=== PATIENT | male | born 1940 | race Hispanic/Latino ===

== ENCOUNTER 2020-04-03 17:34 | Inpatient (IN) | payer MEDICARE ==
--- NOTE | 2020-04-03 23:35 | PDOC.HHP ---
Hospitalist HPI - History of Present Illness Cough History of Present Illness: This is a 79-year-old male patient With a history of diabetes mellitus who was transferred from [facility] on account of respiratory failure requiring 2 L of oxygen and suspicious of Covid. On arrival patient was looking generally comfortable. 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 Patient is Iranian-speakingtelemetry diplomatic interpreter was used for this H&P At the time of my evaluation his cough seems to have started improving however. At [place], he was requiring 2 L to maintain his saturations at about 92 and above. His D-dimer was significantly elevated however his CTA was negative for PE. His chest imaging was however suggestive of Covid infection. Covid test was not actually done given rapid test cannot be done at the outside facility. At the time of his arrival patient looks pretty stable. He said the cough is actually stopped and he was feeling quite healthy. Patient knows of cough and has stopped he denied any sore throat chest pain wheezing palpitations or shortness of breath. Also denies any fevers dysuria frequency or diarrhea. His labs done in [place] shows leukocytosis of 11.0, He had hyponatremia of 132, CK 2 7, CRP 18.7 lactate 1.7. Medicine he was given 1 L normal saline azithromycin, ceftriaxone, Lovenox and dexamethasone prior to transfer here. Hospitalist ROS - Review of Systems Constitutional: denies: fever, chills, sweats, weakness, malaise Eyes: denies: pain, vision change, conjunctivae inflammation ENT: denies: ear pain, ear discharge, nose pain Respiratory: reports: cough, shortness of breath. denies: pleuritic pain, sputum Gastrointestinal: denies: nausea, vomiting, abdominal pain Genitourinary: denies: dysuria, frequency, incontinence Neurological: denies: weakness, numbness, incoordination, change in speech Hospitalist History - Past Medical History Endocrine: reports: Diabetes - Past Surgical History Past Surgical History: reports: no pertinent history - Family History Family History: reports: no pertinent history - Social History Smoking Status: Current every day smoker Living Situation: Alone Activity level: uses cane/walker - Exam General Appearance: awake alert Eye: PERRL, anicteric sclera ENT: normocephalic atraumatic Neck: supple, symmetric, no JVD, no thyromegaly Heart: RRR, no murmur, no gallops, no rubs Respiratory: CTAB, no wheezes, no rales, no ronchi, normal chest expansion, normal percussion, rhonchi Gastrointestinal: soft, non-tender, non-distended, normal bowel sounds Extremities: no cyanosis, no edema Skin: normal turgor Neurological: cranial nerve grossly intact, normal sensation to touch, no weakness, no focal deficits Musculoskeletal: normal tone, normal strength, no muscle wasting Psychiatric: normal affect, normal behavior, A&O x 3 Hospitalist Results - Labs Result Diagrams: 04/05/20 06:43 04/05/20 06:43 Hospitalist H&P A/P - Plan Plan: This is a 79-year-old male patient that history of diabetes who presents as a transfer from [place] due to concerns for possible Covid pneumonia. Pneumonia Bilateral infiltrates concerning for Covid Covid test pending Received azithromycin and ceftriaxonewe will continue Await Covid test. Diabetes mellitus Currently stable Monitor glucose. CODE STATUSfull code dispositionlikely home tomorrow if still stable DVT prophylaxisLovenox
[2020-04-04 00:37] VITALS: BMI 21.3
[2020-04-04] MEDS ORDERED: HumaLOG 300 UNITS/3 ML VIAL SC PRN (04:45)
[2020-04-04] MEDS ORDERED: Dextrose 50% Abboject 50 ML SYRINGE SLOW IVP PRN (04:45)
[2020-04-04] MEDS ORDERED: Dextrose 5% in Water 1,000 ML IV PRN (04:45)
[2020-04-04 05:17] LABS: SARS-CoV-2 MS2 Positive; SARS-CoV-2 N Gene Positive; SARS-CoV-2 S Gene Positive; SARS-CoV-2 by NAA DETECTED (NotDetected); SARS-CoV-2 orf1ab Positive
[2020-04-04 06:19] LABS: #Lymphocytes 0.5 thou/uL (1.20-3.40); #Monocytes 0.2 thou/uL (0.11-0.59); #Neutrophils 7.9 thou/uL (1.40-6.50); %Eosinophils 0.1 % (0.0-10.0); %Lymphocytes 5.3 % (21.0-51.0); %Monocytes 2.3 % (0.0-10.0); %Neutrophils 92.3 % (42.0-75.0); Mean Corpuscular HGB CONC 33.7 g/dL (32.0-36.0); Mean Corpuscular Hemoglobin 28.5 pg (27.0-31.0); Mean Corpuscular Volume 84.6 fL (78.0-98.0); Mean Platelet Volume 8.4 fL (7.4-10.4); Platelet Count 166 thou/uL (130-400); RBC Distribution Width 11.8 % (11.5-14.5); Red Blood Cell (RBC) Count 4.57 mill/uL (4.70-6.10); White Blood Cell (WBC) Count 8.6 thou/uL (4.8-10.8)
[2020-04-04 06:42] LABS: Anion Gap 12 mmol/L (10-20); BUN (Urea Nitrogen) 24 mg/dL (8.4-25.7); Calc. Creatinine Clearance 63 mL/min (70-130); Calcium 8.3 mg/dL (7.8-10.44); Carbon Dioxide 26 mmol/L (23-31); Chloride 102 mmol/L (98-107); Glucose 158 mg/dL (83-110); Potassium 3.5 mmol/L (3.5-5.1); Sodium 136 mmol/L (136-145)
[2020-04-04] MEDS: Acetaminophen 325 MG TAB PO PRN (08:03)
[2020-04-04] MEDS ORDERED: Enoxaparin Sodium 40 MG/0.4 ML SYRINGE SC SCH (09:00)
[2020-04-04] MEDS ORDERED: Dexamethasone 4 mg/ml Vial SLOW IVP SCH (10:00)
[2020-04-04] MEDS ORDERED: Polyethylene Glycol 3350 17 GM Packet PO PRN (15:55)
[2020-04-04] MEDS ORDERED: REMDESIVIR (EUA) 200 MG in Sodium Chloride 0.9% 250 ML 210 ML IV SCH (18:15)
[2020-04-04] MEDS: Senokot S 8.6-50 MG TAB PO SCH (20:01)
[2020-04-04] MEDS: Famotidine 20 MG TAB PO SCH (20:02)
[2020-04-04] MEDS: Enoxaparin Sodium 40 MG/0.4 ML SYRINGE SC SCH (20:02)
[2020-04-05 07:08] LABS: #Lymphocytes 0.4 thou/uL (1.20-3.40); #Monocytes 0.5 thou/uL (0.11-0.59); #Neutrophils 15.7 thou/uL (1.40-6.50); %Eosinophils 0.1 % (0.0-10.0); %Lymphocytes 2.6 % (21.0-51.0); %Monocytes 3.1 % (0.0-10.0); %Neutrophils 94.3 % (42.0-75.0); Hemoglobin 12.3 g/dL (14.0-18.0); Mean Corpuscular HGB CONC 34.6 g/dL (32.0-36.0); Mean Corpuscular Hemoglobin 28.9 pg (27.0-31.0); Mean Corpuscular Volume 83.6 fL (78.0-98.0); Mean Platelet Volume 8.2 fL (7.4-10.4); Platelet Count 192 thou/uL (130-400); RBC Distribution Width 11.7 % (11.5-14.5); Red Blood Cell (RBC) Count 4.27 mill/uL (4.70-6.10); White Blood Cell (WBC) Count 16.6 thou/uL (4.8-10.8)
[2020-04-05] MEDS: Famotidine 20 MG TAB PO SCH ×2 (07:36→20:14)
[2020-04-05] MEDS: Senokot S 8.6-50 MG TAB PO SCH ×2 (07:36→20:14)
[2020-04-05] MEDS: Enoxaparin Sodium 40 MG/0.4 ML SYRINGE SC SCH ×2 (07:37→20:14)
[2020-04-05] MEDS: Polyethylene Glycol 3350 17 GM Packet PO SCH (07:37)
[2020-04-05] MEDS: Dexamethasone 4 mg/ml Vial SLOW IVP SCH (07:37)
[2020-04-05 07:46] LABS: ALT (SGPT) 29 U/L (8-55); AST (SGOT) 50 U/L (5-34); Alkaline Phosphatase 98 U/L (40-110); Anion Gap 14 mmol/L (10-20); BUN (Urea Nitrogen) 26 mg/dL (8.4-25.7); Bilirubin, Total 0.7 mg/dL (0.2-1.2); Calc. Creatinine Clearance 61 mL/min (70-130); Calcium 8.1 mg/dL (7.8-10.44); Carbon Dioxide 22 mmol/L (23-31); Chloride 101 mmol/L (98-107); Globulin 3.4 g/dL (2.4-3.5); Glucose 135 mg/dL (83-110); Potassium 3.7 mmol/L (3.5-5.1); Protein, Total 6.4 g/dL (5.8-8.1); Sodium 133 mmol/L (136-145)
[2020-04-05] MEDS: Acetaminophen 325 MG TAB PO PRN (07:49)
--- NOTE | 2020-04-05 15:07 | PDOC.HOSPP ---
- Subjective Encounter Date: 04/04/20 Encounter Time: 15:00 Subjective: pt up in bed no complains - Objective Vital Signs & Weight: Vital Signs (12 hours) Temp Pulse Resp BP Pulse Ox 04/05/20 11:22 97.4 F L 65 16 136/73 96 04/05/20 08:42 96 04/05/20 08:40 99.8 F H 76 18 144/74 H 96 04/05/20 04:00 100.1 F H 89 18 131/67 95 Weight Admit Weight 132 lb Weight 132 lb I&O: 04/04/20 04/05/20 04/06/20 06:59 06:59 06:59 Intake Total 240 Balance 240 Result Diagrams: 04/05/20 06:43 04/05/20 06:43 Additional Labs: Accuchecks 04/05/20 04/05/20 04/04/20 11:26 04:24 21:20 POC Glucose 150 H 136 H 165 H Hospitalist ROS - Review of Systems Respiratory: reports: cough Cardiovascular: denies: chest pain, palpitations, orthopnea, paroxysmal noc. dyspnea, edema, light headedness, other Gastrointestinal: denies: nausea, vomiting, abdominal pain, diarrhea, constipation, melena, hematochezia, other Genitourinary: denies: dysuria, frequency, incontinence, hematuria, retention, other - Medication Medications: Active Medications Generic Name Dose Route Start Last Admin Trade Name Freq PRN Reason Stop Dose Admin Acetaminophen 650 mg 04/03/20 22:43 04/05/20 07:49 Acetaminophen 325 Mg Tab PO 650 mg Q4H PRN Administration Headache/Fever/Mild Pain (1-3) Dexamethasone 6 mg 04/05/20 09:00 04/05/20 07:37 Dexamethasone 4 Mg/Ml Vial SLOW IVP 6 mg DAILY DREA Administration Enoxaparin Sodium 40 mg 04/04/20 21:00 04/05/20 07:37 Enoxaparin Sodium 40 Mg/0.4 Ml Syringe SC 40 mg BID DREA Administration Famotidine 20 mg 04/04/20 21:00 04/05/20 07:36 Famotidine 20 Mg Tab PO 20 mg BID DREA Administration Polyethylene Glycol 17 gm 04/05/20 09:00 04/05/20 07:37 Polyethylene Glycol 3350 17 Gm Packet PO 17 gm DAILY DREA Administration Senna/Docusate Sodium 1 tab 04/04/20 21:00 04/05/20 07:36 Senokot S 8.6-50 Mg Tab PO 1 tab BID DREA Administration - Exam Neck: negative: supple, symmetric, no JVD, no thyromegaly, no lymphadenopathy, no carotid bruit, JVD Heart: negative: RRR, no murmur, no gallops, no rubs, normal peripheral pulses, irregular, diminshed peripheral pulses, murmur present, II/IV, III/IV Respiratory: negative: CTAB, no wheezes, no rales, no ronchi, normal chest expansion, no tachypnea, normal percussion, rales, rhonchi, tachypneic, wheezes Gastrointestinal: negative: soft, non-tender, non-distended, normal bowel sounds, no palpable masses, no hepatomegaly, no splenomegaly, no bruit, no guarding, no rigidity, tender to palpation, distended, diminished bowl sounds, voluntary guarding Hosp A/P (1) SOB (shortness of breath) Code(s): R06.02 - SHORTNESS OF BREATH Status: Acute (2) COVID-19 Code(s): U07.1 - COVID-19 Status: Acute (3) Acute respiratory failure with hypoxia Code(s): J96.01 - ACUTE RESPIRATORY FAILURE WITH HYPOXIA Status: Acute - Plan spoke with pt and he states that he went to [place] and after four days when he c lamar back stated to have cough. Pt's sob got worse and so did his cough so he came in to the ER. He was noted to be hypoxic. will start pt on steroids and see if he can get remdesivir. His CTA no PE.
--- NOTE | 2020-04-05 15:34 | PDOC.HOSPP ---
- Subjective Encounter Date: 04/05/20 Encounter Time: 14:00 Subjective: is amb in room on nasal canula no sob or abd pain - Objective Vital Signs & Weight: Vital Signs (12 hours) Temp Pulse Resp BP Pulse Ox 04/05/20 11:22 97.4 F L 65 16 136/73 96 04/05/20 08:42 96 04/05/20 08:40 99.8 F H 76 18 144/74 H 96 04/05/20 04:00 100.1 F H 89 18 131/67 95 Weight Admit Weight 132 lb Weight 132 lb I&O: 04/04/20 04/05/20 04/06/20 06:59 06:59 06:59 Intake Total 240 Balance 240 Result Diagrams: 04/05/20 06:43 04/05/20 06:43 Additional Labs: Accuchecks 04/05/20 04/05/20 04/04/20 11:26 04:24 21:20 POC Glucose 150 H 136 H 165 H Hospitalist ROS - Medication Medications: Active Medications Generic Name Dose Route Start Last Admin Trade Name Freq PRN Reason Stop Dose Admin Acetaminophen 650 mg 04/03/20 22:43 04/05/20 07:49 Acetaminophen 325 Mg Tab PO 650 mg Q4H PRN Administration Headache/Fever/Mild Pain (1-3) Dexamethasone 6 mg 04/05/20 09:00 04/05/20 07:37 Dexamethasone 4 Mg/Ml Vial SLOW IVP 6 mg DAILY DREA Administration Enoxaparin Sodium 40 mg 04/04/20 21:00 04/05/20 07:37 Enoxaparin Sodium 40 Mg/0.4 Ml Syringe SC 40 mg BID DREA Administration Famotidine 20 mg 04/04/20 21:00 04/05/20 07:36 Famotidine 20 Mg Tab PO 20 mg BID DREA Administration Polyethylene Glycol 17 gm 04/05/20 09:00 04/05/20 07:37 Polyethylene Glycol 3350 17 Gm Packet PO 17 gm DAILY DREA Administration Senna/Docusate Sodium 1 tab 04/04/20 21:00 04/05/20 07:36 Senokot S 8.6-50 Mg Tab PO 1 tab BID DREA Administration - Exam General Appearance: awake alert Eye: PERRL, anicteric sclera ENT: no oropharyngeal lesions, moist mucosa Neck: supple, no JVD Heart: RRR, no murmur Respiratory: no wheezes, no rales, rhonchi Gastrointestinal: soft, non-tender, non-distended, normal bowel sounds Extremities: no cyanosis, no edema Neurological: cranial nerve grossly intact, no focal deficits Psychiatric: normal affect, A&O x 3 Hosp A/P (1) Acute respiratory failure with hypoxia Code(s): J96.01 - ACUTE RESPIRATORY FAILURE WITH HYPOXIA Status: Acute (2) Pneumonia due to COVID-19 virus Code(s): U07.1 - COVID-19; J12.82 - PNEUMONIA DUE TO CORONAVIRUS DISEASE 2018 Status: Acute (3) DM type 2 (diabetes mellitus, type 2) Status: Chronic Qualifiers: Diabetes mellitus lobsterman insulin use: without lobsterman use (4) Tobacco abuse Code(s): Z72.0 - TOBACCO USE Status: Chronic - Plan is on dexamethasone, nasal canula O2, remdesivir hemostable encourage po intake to ambulate as tolerated
--- NOTE | 2020-04-05 15:43 | CON ---
DATE OF CONSULTATION: 04/05/2020 REASON FOR CONSULT: SARS-CoV2 infection. HISTORY OF PRESENT ILLNESS: A 79-year-old who has a history of type 2 diabetes, who has been ill for about 11 days and presented with a pulse of 97, O2 saturations 90% on room air. So he has been admitted and treated remdesivir, Decadron, enoxaparin. Right now, he is doing better. He is still having a low-grade temperature elevation intermittently but was saturating 94% to 96% with 4 L when I saw him. He does not appear in distress. He was coughing intermittently. No headaches. No chest pain or abdominal pain. No diarrhea. No genitourinary symptoms. Able to eat. Some anosmia. MEDICAL HISTORY: Hyperlipidemia, type 2 diabetes. SURGICAL HISTORY: Negative. FAMILY HISTORY: All his children are in [place]. He has his in [place]. SOCIAL HISTORY: He smokes daily. [place] in [place]. He has been working there for more than 20 years. ALLERGIES: NONE. CURRENT MEDICATIONS: 1. Decadron. 2. Remdesivir. PHYSICAL EXAMINATION: VITAL SIGNS: T-max 100.1 recently, he is now 97.4, pulse 65, respiratory rate 16, saturating 96% on 4 L. GENERAL: He does not appear in distress, is awake, oriented, follows commands. He is voiding in the urinal SKIN: Peripheral IV access. LYMPH: No lymphadenopathy. HEENT: Ocular movements with numerous missing teeth. NECK: Supple. No jugular vein distention. A few crackles, well defined in the lower third of right and left hemithorax. No wheezing. HEART: S1, S2. Regular rate. No murmurs. ABDOMEN: Soft, not distended or tender. No ascites. No bladder distention. EXTREMITIES: No joint inflammatory activity. Moves extremities equally. No edema. Pulses 1+ in dorsalis pedis. NEUROLOGIC: Awake, oriented, follows commands. Good recall. Speech is normal. LABORATORY DATA: White cell count went up from 8.6 to 16.6, hemoglobin 12.3, platelets 192 with 94% neutrophils. Sodium 133, creatinine 0.83. AST 50, ALT 29, albumin 3.0. SARS-CoV2 PCR positive. Had a chest CTA with scattered moderate bilateral ground-glass opacities, typical of COVID. ASSESSMENT: Chronic smoking, probably some element of COPD, type 2 diabetes and COVID-19. His LILIANA score is at 16.22 and this is the 13th day of illness, so I do not expect him to deteriorate in the time course of his illness. It is again hard to predict, but he probably will require O2 upon discharge planning and continue monitoring his CRP and ferritin to help with discharge planning after there is verifiable downward trend. Job ID: [id number]
[2020-04-05] MEDS ORDERED: REMDESIVIR (EUA) 100 MG in Sodium Chloride 0.9% 250 ML 230 ML IV SCH (18:15)
[2020-04-06] MEDS: Enoxaparin Sodium 40 MG/0.4 ML SYRINGE SC SCH ×2 (07:36→20:14)
[2020-04-06] MEDS: Dexamethasone 4 mg/ml Vial SLOW IVP SCH (07:36)
[2020-04-06] MEDS: Polyethylene Glycol 3350 17 GM Packet PO SCH (07:36)
[2020-04-06] MEDS: Senokot S 8.6-50 MG TAB PO SCH ×2 (07:36→20:14)
[2020-04-06] MEDS: Famotidine 20 MG TAB PO SCH ×2 (07:36→20:14)
--- NOTE | 2020-04-06 14:42 | PDOC.HOSPP ---
- Subjective Encounter Date: 04/06/20 Encounter Time: 09:00 Subjective: is on nasal canula, not in distress at rest, gets short winded on minimal exertion is eating better - Objective Vital Signs & Weight: Vital Signs (12 hours) Temp Pulse Resp BP BP Pulse Ox 04/06/20 11:25 93 L 04/06/20 10:01 95 04/06/20 08:46 93 L 04/06/20 08:43 97.7 F 68 18 124/67 93 L 04/06/20 04:00 98.0 F 69 18 114/68 100 Weight Admit Weight 132 lb Weight 132 lb I&O: 04/05/20 04/06/20 04/07/20 06:59 06:59 06:59 Intake Total 240 1000 Balance 240 1000 Result Diagrams: 04/05/20 06:43 04/05/20 06:43 Additional Labs: Accuchecks 04/06/20 04/06/20 04/05/20 11:24 04:40 19:50 POC Glucose 158 H 113 H 211 H 04/05/20 16:14 POC Glucose 178 H Hospitalist ROS - Medication Medications: Active Medications Generic Name Dose Route Start Last Admin Trade Name Freq PRN Reason Stop Dose Admin Acetaminophen 650 mg 04/03/20 22:43 04/05/20 07:49 Acetaminophen 325 Mg Tab PO 650 mg Q4H PRN Administration Headache/Fever/Mild Pain (1-3) Dexamethasone 6 mg 04/05/20 09:00 04/06/20 07:36 Dexamethasone 4 Mg/Ml Vial SLOW IVP 6 mg DAILY DREA Administration Enoxaparin Sodium 40 mg 04/04/20 21:00 04/06/20 07:36 Enoxaparin Sodium 40 Mg/0.4 Ml Syringe SC 40 mg BID DREA Administration Famotidine 20 mg 04/04/20 21:00 04/06/20 07:36 Famotidine 20 Mg Tab PO 20 mg BID DREA Administration Insulin Human Lispro 0 units 04/04/20 04:45 04/05/20 21:27 Humalog 300 Units/3 Ml Vial SC 2 unit .BEDTIME SLIDING SC PRN Administration Bedtime Correctional Scale Polyethylene Glycol 17 gm 04/05/20 09:00 04/06/20 07:36 Polyethylene Glycol 3350 17 Gm Packet PO 17 gm DAILY DREA Administration Senna/Docusate Sodium 1 tab 04/04/20 21:00 04/06/20 07:36 Senokot S 8.6-50 Mg Tab PO 1 tab BID DREA Administration - Exam General Appearance: awake alert Eye: PERRL, anicteric sclera ENT: no oropharyngeal lesions, moist mucosa Neck: supple, no JVD Heart: RRR, no murmur Respiratory: no wheezes, no rales, rhonchi Gastrointestinal: soft, non-tender, non-distended, normal bowel sounds Extremities: no cyanosis, no edema Neurological: cranial nerve grossly intact, no focal deficits Psychiatric: normal affect, A&O x 3 Hosp A/P (1) Acute respiratory failure with hypoxia Code(s): J96.01 - ACUTE RESPIRATORY FAILURE WITH HYPOXIA Status: Acute (2) Pneumonia due to COVID-19 virus Code(s): U07.1 - COVID-19; J12.82 - PNEUMONIA DUE TO CORONAVIRUS DISEASE 2018 Status: Acute (3) DM type 2 (diabetes mellitus, type 2) Status: Chronic Qualifiers: Diabetes mellitus fpc insulin use: without fpc use (4) Tobacco abuse Code(s): Z72.0 - TOBACCO USE Status: Chronic - Plan is on dexamethasone, nasal canula O2, not a candidate for remdesivir due to dura titi of illness (day 11 on arrival) hemostable encourage po intake to ambulate as tolerated dc plan on home O2 with HH and PT
[2020-04-06] MEDS: HumaLOG 300 UNITS/3 ML VIAL SC PRN (15:48)
[2020-04-07 07:03] LABS: #Lymphocytes 0.7 thou/uL (1.20-3.40); #Monocytes 0.4 thou/uL (0.11-0.59); #Neutrophils 9.3 thou/uL (1.40-6.50); %Eosinophils 0.3 % (0.0-10.0); %Lymphocytes 6.4 % (21.0-51.0); %Monocytes 3.7 % (0.0-10.0); %Neutrophils 89.7 % (42.0-75.0); Hemoglobin 12.7 g/dL (14.0-18.0); Mean Corpuscular HGB CONC 33.4 g/dL (32.0-36.0); Mean Corpuscular Hemoglobin 28.2 pg (27.0-31.0); Mean Corpuscular Volume 84.5 fL (78.0-98.0); Mean Platelet Volume 7.9 fL (7.4-10.4); Platelet Count 219 thou/uL (130-400); RBC Distribution Width 11.7 % (11.5-14.5); Red Blood Cell (RBC) Count 4.48 mill/uL (4.70-6.10); White Blood Cell (WBC) Count 10.4 thou/uL (4.8-10.8)
[2020-04-07 07:23] LABS: Anion Gap 12 mmol/L (10-20); BUN (Urea Nitrogen) 21 mg/dL (8.4-25.7); CRP (Inflammatory) 4.72 mg/dL (= or < 0.5); Calc. Creatinine Clearance 63 mL/min (70-130); Calcium 8.2 mg/dL (7.8-10.44); Carbon Dioxide 28 mmol/L (23-31); Chloride 102 mmol/L (98-107); Glucose 97 mg/dL (83-110); Potassium 3.6 mmol/L (3.5-5.1); Sodium 138 mmol/L (136-145)
[2020-04-07] MEDS: Polyethylene Glycol 3350 17 GM Packet PO SCH (07:38)
[2020-04-07] MEDS: Senokot S 8.6-50 MG TAB PO SCH (07:39)
[2020-04-07] MEDS: Enoxaparin Sodium 40 MG/0.4 ML SYRINGE SC SCH (07:39)
[2020-04-07] MEDS: Dexamethasone 4 mg/ml Vial SLOW IVP SCH (07:39)
[2020-04-07] MEDS: Famotidine 20 MG TAB PO SCH (07:39)
[2020-04-07] MEDS ORDERED: Amlodipine 10 MG TAB PO SCH (09:00)
--- NOTE | 2020-04-07 09:21 | RAD ---
PORTABLE CHEST: Date: 04/07/2020 PROVIDED CLINICAL HISTORY: COVID pneumonia. FINDINGS: Comparison made with examination dated 04/03/2020. The cardiac and mediastinal silhouette is unchanged in appearance. Vascular calcification is noted in volving the aortic arch. Diffuse bilateral ground-glass opacity is noted, probably worsened with resp ect to the prior examination with differences in technique limiting direct comparison. No lobar conso lidation, pleural fluid, or pneumothorax apparent. IMPRESSION: Diffuse bilateral ground-glass opacity, probably worsened with respect to the prior study. POS: NESTOR
[2020-04-07 11:40] VITALS: BP 122/71; TEMP 97.6
[2020-04-07] MEDS: HumaLOG 300 UNITS/3 ML VIAL SC PRN (12:20)
--- NOTE | 2020-04-08 07:31 | DIS ---
DATE OF ADMISSION: 04/04/2020 DATE OF DISCHARGE: 04/07/2020 DISCHARGE DISPOSITION: To home with [facility]. PRIMARY DISCHARGE DIAGNOSES: COVID-19 pneumonia, acute respiratory failure with hypoxia secondary to COVID pneumonia, tobacco abuse, and diabetes mellitus type 2. PROCEDURES DONE DURING HOSPITALIZATION: CT angio chest done on the day of admission showed no evidence of PE. There were pulmonary parenchymal findings typical but not specific for COVID pneumonia. H and H 12 and 37, platelet count 219. COVID-19 PCR was positive on 04/04/2020. Discharge BUN and creatinine 21 and 0.8. CRP 4.72. Ferritin 9 on the day of discharge. CRP was 18 on the day of admission. DISCHARGE MEDICATIONS: 1. DuoNeb 4 times daily. 2. Dexamethasone 6 mg p.o. daily for another 8 days. 3. Norvasc 10 mg p.o. daily. 4. Protonix 40 mg p.o. daily for 2 weeks. ALLERGIES: NO KNOWN DRUG ALLERGIES. DISCHARGE PLAN: The patient to follow up with his primary care physician in [facility] in 1 week. BRIEF COURSE DURING HOSPITALIZATION: The patient initially got admitted on the with complaints of shortness of breath and cough. The patient had symptoms of cough and runny nose for nearly two weeks prior to arrival. He tested positive for COVID-19 virus. The patient had bilateral infiltrates on x-ray. The patient was not a candidate for remdesivir due to duration of illness, nearly 11 or 12 days prior to arrival. He was placed on steroids and albuterol inhaler along with nasal cannula oxygen and was closely monitored. He has remained hemodynamically stable. Prior to discharge, he is ambulating in the room and eating well. Mr. Lundy has bilateral patchy infiltrates. He needs to continue home oxygen for at least 3 to 4 weeks. This will be set up by Case Management along with [facility] prior to discharge. Please note, I have seen and examined the patient on the day of discharge. Job ID: [id number]
== END 2020-04-07 16:43 | disposition home health service (06) | DRG 177 ==
LOC: T4-B 21:10 → INTOOBSV 21:10 → T4-B 21:30 → OBSVTOIN 04-04 09:52
PROVIDERS: ADMIT Internal Medicine; ATTEND Internal Medicine
PROC: 8E0ZXY6 Isolation (ICD-10-PCS; principal; 2020-04-04)
PROC: XW033E5 Introduction of Remdesivir Anti-infective into Peripheral Vein, Percutaneous Approach, New Technology Group 5 (ICD-10-PCS; 2020-04-04)
DX: U07.1 COVID-19 (principal); J12.82 Pneumonia due to coronavirus disease 2019; J96.01 Acute respiratory failure with hypoxia; J44.0 Chronic obstructive pulmonary disease with (acute) lower respiratory infection; Z23 Encounter for immunization; F17.210 Nicotine dependence, cigarettes, uncomplicated; E11.9 Type 2 diabetes mellitus without complications; E78.5 Hyperlipidemia, unspecified
CPT/HCPCS: 36415; 36416; 71045; 80048; 80053; 82728; 85025; 85379; 86140; 87635; 90471; 90732; G0009; J1100; J1650; U0003